=== PATIENT | female | born 1970 | race Caucasian/White ===

== ENCOUNTER → 2016-07-01 | Outpatient (CLI) | payer OTHER ==
[~2016-07-01] MED LIST: ATOR1TAB21 PO; IBUP200C PO; IBUP80TA PO; MEDR10TA PO; MULTTAB4 PO; SUPE1TAB PO; VITAD1000T FT
--- NOTE | 2016-07-01 12:06 | REPMRS ---
Patient History The patient states she had a clinical breast exam in 2016.Patient is nulliparous. Family history of unknown cancer in paternal grandfather at age 70 and unknown cancer in mother at age 41. Digital Mammo Screening Bilat: July 01, 2016 - Exam #: [id number] Bilateral CC and MLO view(s) were taken. Technologist: Gilma Johnson, Technologist Prior study comparison: June 26, 2015, bilateral digital mammo screening bilat performed at [facility]. June 24, 2014, bilateral digital mammo screening bilat performed at [facility]. January 29, 2011, bilateral digital mammo screening bilat, performed at [facility]. FINDINGS: There are scattered fibroglandular densities. There has been no change in the appearance of the mammogram from the prior studies. There is a mild amount of scattered fibroglandular density which is fairly symmetric. There is no interval development of dominant mass, architectural distortion, or clustered microcalcification suggestive of malignancy. ASSESSMENT: BI-RADS/ACR category 1 mammogram. Negative. Recommendation Routine screening mammogram in 1 year (for women over age 40). This mammogram was interpreted with the aid of an FDA-approved computer-aided dectection system. Electronically Signed By: Dashawn Marley MD 07/01/16 2535
== END ==
LOC: M RAD 11:41
PROVIDERS: ATTEND Obstetrics & Gynecology
DX: Z12.31 Encounter for screening mammogram for malignant neoplasm of breast (principal)

== ENCOUNTER → 2017-07-02 | Outpatient (CLI) | payer OTHER | LOC: M RAD 12:26 | DX: Z12.31 Encounter for screening mammogram for malignant neoplasm of breast (principal); Z80.9 Family history of malignant neoplasm, unspecified | CPT/HCPCS: 77067 ==

== ENCOUNTER → 2017-11-23 | Outpatient (CLI) | payer OTHER | LOC: M SLEEP 20:00 | DX: G47.30 Sleep apnea, unspecified (principal) | CPT/HCPCS: 95810 ==

== ENCOUNTER → 2017-12-31 | Outpatient (CLI) | payer OTHER | LOC: M SLEEP 19:15 | DX: G47.33 Obstructive sleep apnea (adult) (pediatric) (principal) | CPT/HCPCS: 95811 ==

== ENCOUNTER → 2018-07-06 | Outpatient (CLI) | payer OTHER ==
--- NOTE | 2018-07-06 13:35 | REPMRS ---
Patient History The patient states she had a clinical breast exam in June 2018. Family history of unknown cancer at age 41 in mother, unknown cancer at age 70 in paternal grandfather. Digital Mammo Screening Bilat: July 06, 2018 - Exam #: [id number] Bilateral CC and MLO view(s) were taken. Technologist: Viktoriya Jefferson, Technologist Prior study comparison: July 02, 2017, bilateral digital mammo screening bilat performed at [facility]. July 01, 2016, bilateral digital mammo screening bilat performed at [facility]. June 26, 2015, bilateral digital mammo screening bilat performed at [facility]. FINDINGS: There are scattered fibroglandular densities. There has been no change in the appearance of the mammogram from the prior studies. There is a mild amount of scattered fibroglandular density which is fairly symmetric. There is no interval development of dominant mass, architectural distortion, or clustered microcalcification suggestive of malignancy. 3-D tomosynthesis shows no additional findings. Assessment: BI-RADS/ACR category 1 mammogram. Negative Mammogram. Recommendation Routine screening mammogram of both breasts in 1 year (for women over age 40). This patient's Lifetime Breast Cancer RIsk is estimated at 13.5 %. This mammogram was interpreted with the aid of an FDA-approved computer-aided dectection system. Electronically Signed By: Dashawn Marley MD 07/06/18 [id number]
== END ==
LOC: M RAD 11:09
PROVIDERS: ATTEND Obstetrics & Gynecology
DX: Z12.31 Encounter for screening mammogram for malignant neoplasm of breast (principal)

== ENCOUNTER → 2019-07-29 | Outpatient (CLI) | payer OTHER ==
--- NOTE | 2019-07-29 14:22 | REPMRS ---
Patient History The patient states she had a clinical breast exam in July 2019. Family history of unknown cancer at age 41 in mother, unknown cancer at age 70 in paternal grandfather. Digital Woman Screen Mammo: July 29, 2019 - Exam #: [id number] Bilateral CC and MLO view(s) were taken. Technologist: Suze Cueto Technologist Prior study comparison: July 06, 2018, bilateral digital mammo screening bilat, performed at [facility]. July 02, 2017, bilateral digital mammo screening bilat, performed at [facility]. July 01, 2016, bilateral digital mammo screening bilat, performed at [facility]. FINDINGS: There are scattered fibroglandular densities. There is a grouping of somewhat coarse punctate microcalcifications in the upper outer quadrant on the right which merits further evaluation. There has been no change in the appearance of the mammogram from the prior studies. There is a mild amount of scattered fibroglandular density which is fairly symmetric. There is no interval development of dominant mass, architectural distortion, or grouped microcalcification suggestive of malignancy. 3-D tomosynthesis shows no additional findings. Assessment: BI-RADS/ACR category 0 mammogram, Incomplete: Need additional imaging evaluation and/or prior mammograms for comparison. Recommendation Special view mammogram of the right breast. This patient's Lifetime Breast Cancer Risk is estimated at 13.1 %. This mammogram was interpreted with the aid of an FDA-approved computer-aided dectection system. Electronically Signed By: Dashawn Marley MD 07/29/19 [id number]
== END ==
LOC: M WHC 12:13
PROVIDERS: ATTEND Obstetrics & Gynecology
DX: Z12.31 Encounter for screening mammogram for malignant neoplasm of breast (principal); Z80.9 Family history of malignant neoplasm, unspecified; R92.0 Mammographic microcalcification found on diagnostic imaging of breast

== ENCOUNTER → 2019-08-19 | Outpatient (CLI) | payer OTHER ==
--- NOTE | 2019-08-19 09:48 | REP ---
DIAGNOSTIC MAMMOGRAM RIGHT BREAST: Magnification views of the right breast is performed. These confirm the presence of a cluster of five punctate calcifications in the upper outer quadrant of the right breast. These are new compared to the prior studies most recently 07/06/2018. This does constitute a cluster of microcalcifications and therefore stereotactic biopsy is recommended. IMPRESSION: BIRADS 4: BI-RADS/ACR category 4 mammogram. Suspicious Abnormality - biopsy should be considered. Cluster of five calcifications upper outer quadrant of the right breast. Recommend stereotactic biopsy. Patient letter requested is M4.
== END ==
LOC: M WHC 08:04
PROVIDERS: ATTEND Obstetrics & Gynecology
DX: R92.1 Mammographic calcification found on diagnostic imaging of breast (principal)

== ENCOUNTER → 2020-10-03 | Outpatient (CLI) | payer OTHER ==
--- NOTE | 2020-10-03 16:30 | REP ---
INDICATION: TRIGGER THUMB, RIGHT THUMB COMPARISON: None. TECHNIQUE: AP, lateral, bilateral oblique views right hand. FINDINGS: The osseous structures and joint spaces are intact and normal. There is no evidence for acute fracture or dislocation. Surrounding soft tissues are unremarkable. No subcutaneous emphysema or radiodense foreign body. IMPRESSION: Normal right hand radiographs. <Electronically signed by Edy Wall > 10/03/20 [id number]
== END ==
LOC: M RAD 15:51
PROVIDERS: ATTEND Physician Assistant
DX: M65.311 Trigger thumb, right thumb (principal)

== ENCOUNTER → 2021-03-27 | Outpatient (CLI) | payer OTHER ==
--- NOTE | 2021-03-27 12:18 | REP ---
INDICATION: SPRAIN. COMPARISON: None. TECHNIQUE: Five views of the right foot were obtained. FINDINGS: There is no evidence of fracture or dislocation. There is no significant arthropathy. There is a large plantar spur. There are no soft tissue abnormalities. IMPRESSION: No evidence of fracture or significant arthropathy. Heel spur. <Electronically signed by Andrew De La Torre > 03/27/21 [id number]
--- NOTE | 2021-03-27 12:19 | REP ---
INDICATION: SPRAIN. COMPARISON: None. TECHNIQUE: Four views the right ankle were obtained. FINDINGS: There is no evidence of fracture or gray dislocation. There is no significant arthropathy. There is nonspecific soft tissue swelling about the ankle. There is a large plantar spur. IMPRESSION: 1. Soft tissue swelling consistent with ankle sprain. 2. Plantar spur. <Electronically signed by Andrew De La Torre > 03/27/21 0161
== END ==
LOC: M WUC 09:16
PROVIDERS: ATTEND Physician Assistant
DX: S93.401A Sprain of unspecified ligament of right ankle, initial encounter (principal); S93.691A Other sprain of right foot, initial encounter; M79.89 Other specified soft tissue disorders; M77.31 Calcaneal spur, right foot; X58.XXXA Exposure to other specified factors, initial encounter; Y92.9 Unspecified place or not applicable; Y93.9 Activity, unspecified; Y99.9 Unspecified external cause status

== ENCOUNTER → 2021-06-23 | Outpatient (CLI) | payer OTHER ==
[~2021-06-23] MED LIST changes: +LISI10TA22 PO; +METF500T13 PO; +ROSU10TA6 PO
== END ==
LOC: M LABSMTC 10:18
PROVIDERS: ATTEND Anesthesiology
DX: Z01.818 Encounter for other preprocedural examination (principal); Z20.822 Contact with and (suspected) exposure to COVID-19

== ENCOUNTER 2021-06-28 08:03 | Day surgery (SDC) | payer OTHER ==
[~2021-06-28] VITALS: Ht 157.5 cm; Wt 90.7 kg
[~2021-06-28 08:03] MED LIST changes: +NS 1,000 ML IV ONE
[2021-06-28] MEDS ORDERED: propofoL 200 MG/20 ML VIAL As Ordered ONE (08:54)
[2021-06-28 09:20] VITALS: BP 129/72
== END 2021-06-28 09:22 | disposition home or self-care (01) ==
LOC: M OPP 08:03
PROVIDERS: ATTEND Surgery
DX: Z12.11 Encounter for screening for malignant neoplasm of colon (principal); K57.30 Diverticulosis of large intestine without perforation or abscess without bleeding; Z79.82 Long term (current) use of aspirin; Z79.899 Other long term (current) drug therapy

== ENCOUNTER → 2022-05-22 | Outpatient (REF) | payer OTHER ==
[~2022-05-22] MED LIST changes: -NS 1,000 ML IV ONE
[2022-05-22 17:51] LABS: HEMOGLOBIN A1c 7.7 % (4.0-6.0)
[2022-05-22 17:52] LABS: CHOLESTEROL RISK RATIO 4.59 (<5); HDL CHOLESTEROL 47.7 MG/DL (>40); LDL CHOLESTEROL 124.5 MG/DL (<100)
== END ==
LOC: M LABWUC 16:21
PROVIDERS: ATTEND Physician Assistant
DX: E78.2 Mixed hyperlipidemia (principal); E11.9 Type 2 diabetes mellitus without complications

== ENCOUNTER → 2022-09-27 | Outpatient (CLI) | payer OTHER ==
[2022-09-27 12:53] LABS: HEMOGLOBIN A1c 7.6 % (4.0-6.0)
== END ==
LOC: M WUC 09:02
PROVIDERS: ATTEND Physician Assistant
DX: E11.9 Type 2 diabetes mellitus without complications (principal)

== ENCOUNTER → 2023-11-13 | Outpatient (CLI) | payer OTHER ==
[~2023-11-13] MED LIST changes: -ROSU10TA6 PO; +ROSU10TA61 PO
[2023-11-13 11:38] LABS: HEMATOCRIT 41.7 % (36.0-47.0); MEAN CORPUSCULAR HEMOGLOBIN 29.7 pg (27.0-33.0); MEAN CORPUSCULAR HGB CONC 33.6 g/dl (32.0-36.5); MEAN CORPUSCULAR VOLUME 88.3 fl (80.0-96.0); PLATELET COUNT, AUTOMATED 271 10^3/uL (150-450); RED BLOOD COUNT 4.72 10^6/uL (4.00-5.40)
[2023-11-13 12:04] LABS: ALBUMIN 3.8 G/DL (3.2-5.2); ALKALINE PHOSPHATASE 93 U/L (46-116); ALT/SGPT 32 U/L (7.0-40); AST/SGOT 9 U/L (<34); BILIRUBIN,TOTAL 0.5 MG/DL (0.3-1.2); BLOOD UREA NITROGEN 16 MG/DL (9-23); CARBON DIOXIDE LEVEL 26 MMOL/L (20-31); CHLORIDE LEVEL 107 MMOL/L (98-107); CHOLESTEROL LEVEL 249 MG/DL (<200); CHOLESTEROL RISK RATIO 4.69 (<5); CREATININE FOR GFR 0.69 MG/DL (0.55-1.30); GLOMERULAR FILTRATION RATE > 60.0 (>51); GLUCOSE, FASTING 149 MG/DL (60-100); LDL CHOLESTEROL 171.6 MG/DL (<100); POTASSIUM SERUM 4.2 MMOL/L (3.5-5.1); SODIUM LEVEL 139 MMOL/L (136-145); TOTAL PROTEIN 6.9 G/DL (5.7-8.2); TRIGLYCERIDES LEVEL 122 MG/DL (<150)
[2023-11-14 11:59] LABS: WHITE BLOOD COUNT 7.2 10^3/uL (4.0-10.0)
== END ==
LOC: M WUC 08:12
PROVIDERS: ATTEND Physician Assistant
DX: E78.2 Mixed hyperlipidemia (principal); E11.9 Type 2 diabetes mellitus without complications

== ENCOUNTER → 2024-02-16 | Outpatient (CLI) | payer OTHER ==
[2024-02-16 10:25] LABS: CHOLESTEROL RISK RATIO 5.12 (<5); HDL CHOLESTEROL 44.3 MG/DL (>40); LDL CHOLESTEROL 153.5 MG/DL (<100); NON-HDL-C 182.7 MG/DL
[2024-02-16 10:58] LABS: HEMOGLOBIN A1c 6.9 % (4.0-6.0)
== END ==
LOC: M WUC 08:27
PROVIDERS: ATTEND Physician Assistant
DX: E78.2 Mixed hyperlipidemia (principal); E11.9 Type 2 diabetes mellitus without complications

== ENCOUNTER → 2025-03-22 | Outpatient (CLI) | payer BC ==
[2025-03-22 15:43] LABS: ESTIMATED AVERAGE GLUCOSE 166.0 MG/DL (60-110)
== END ==
LOC: M WUC 12:35
PROVIDERS: ATTEND Physician Assistant
DX: E11.9 Type 2 diabetes mellitus without complications (principal)